=== PATIENT | male | born 1995 | race Caucasian/White ===

== ENCOUNTER 2018-11-10 07:51 | Day surgery (SDC) | payer OTHER ==
[~2018-11-10] VITALS: Ht 180.3 cm; Wt 102.0 kg
[~2018-11-10 07:51] MED LIST: AMPICILLIN SOD/SULBACTAM SOD 3 GM in D5W MINI-BAG PLUS 100 ML IV ONE; LR 1,000 ML IV ONE; dexameTHASONE 4 MG/ML 1ML VIAL (J1100) IV ONE
[2018-11-10] MEDS ORDERED: LIDOCAINE 2% INJ 100 MG/5 ML SDV (FOR ANES.) As Ordered ONE (08:08)
[2018-11-10] MEDS ORDERED: PROPOFOL 200 MG/20 ML VIAL As Ordered ONE (08:08)
[2018-11-10] MEDS ORDERED: ROCURONIUM BROMIDE 50 MG/5 ML VIAL As Ordered ONE (08:08)
[2018-11-10] MEDS ORDERED: MIDAZOLAM INJ 2 MG/2 ML VIAL (J2250) As Ordered ONE (08:09)
[2018-11-10] MEDS ORDERED: fentaNYL 250 MCG/5 ML INJECTION (J3010) As Ordered ONE (08:09)
[2018-11-10] MEDS ORDERED: OXYMETAZOLINE NASAL SPRAY (AFRIN) As Ordered ONE (09:11)
[2018-11-10] MEDS ORDERED: LIDOCAINE 2% W/ EPINEPHRINE 1.7 ML DENTAL INJ As Ordered ONE (09:14)
[2018-11-10] MEDS ORDERED: ONDANSETRON 4MG/2ML VIAL (J2405) As Ordered ONE (10:02)
[2018-11-10] MEDS ORDERED: KETOROLAC 60 MG/2 ML VIAL (J1885) As Ordered ONE (10:02)
[2018-11-10] MEDS ORDERED: METOCLOPRAMIDE INJ 10MG/2ML VIAL (J2765) As Ordered ONE (10:02)
[2018-11-10] MEDS ORDERED: SUGAMMADEX SODIUM 500 MG/5 ML VIAL (BRIDION) As Ordered ONE (10:02)
[2018-11-10] MEDS ORDERED: CHLORHEXIDINE GLUCONATE 0.12 % 15ML UDC (PERIDEX ORAL RINSE) As Ordered ONE (10:05)
[2018-11-10] MEDS ORDERED: DESFLURANE 240 ML INHALANT As Ordered ONE (10:20)
[2018-11-10] MEDS ORDERED: fentaNYL 100 MCG/2 ML INJECTION (J3010) As Ordered ONE (10:23)
[2018-11-10] MEDS ORDERED: PROMETHAZINE INJ 25 MG/ML VIAL (J2550) IV PRN (11:15)
[2018-11-10] MEDS ORDERED: fentaNYL 100 MCG/2 ML INJECTION (J3010) IV PRN (11:15)
[2018-11-10] MEDS ORDERED: LR 1,000 ML IV SCH (11:15)
[2018-11-10] MEDS ORDERED: oxyCODONE 5MG TAB PO PRN (11:15)
[2018-11-10] MEDS ORDERED: METOCLOPRAMIDE INJ 10MG/2ML VIAL (J2765) IV PRN (11:15)
[2018-11-10 12:15] VITALS: BP 134/75
--- NOTE | 2018-11-11 17:58 | RO ---
DATE OF PROCEDURE: 11/10/2018 PREOPERATIVE DIAGNOSIS: 1. ADHD and severe dental anxiety. 2. Symptomatic and malposition wisdom teeth number 1, 16, 17 and 32. POSTOPERATIVE DIAGNOSIS: Status post the above procedure performed surgical extraction of teeth number 1, 16, 17 and 32 anesthesia use general endotracheal anesthesia via nasal ray. SPECIMEN: Teeth for gross only. INDICATIONS FOR SURGERY: Milan is a pleasant, [age]-year-old male who was referred my office for evaluation of extraction of 05/07/2016 and 32 and possibly 18. The patient does not want to have #18 removed and only wants to have his wisdom teeth removed. Physical examination was completed due to his difficult airway and severe dental anxiety. He is not a good candidate for office based anesthesia and therefore we opted to have the procedure done in an operating room setting under general anesthesia. A full history and physical was performed and is in the patient's chart and informed consent was explained to the patient and the mother and all the questions were addressed and was signed and in the patient's chart. DESCRIPTION OF PROCEDURE: The patient presented to preop holding area and any last minute questions were addressed. Paperwork was updated including the consent and history and physical. At that point that point Sun was taken back to the operating room and laid supine on the operating room table. Ulnar nerve protectors were placed. Noninvasive cardiac monitors were applied. At that point the patient underwent general anesthesia with intubation with a nasal ray which was secured to the patient's forehead. He was prepped and draped in usual sterile fashion. A time-out procedure was performed identify the patient, procedure and any other precautions. At this point. Preoperative antibiotics and steroid were administered in the IV and a moist throat pack was inserted in the patient's oropharynx followed by the administration of eight carpules of 2% lidocaine with 1:100,000 epinephrine as local infiltrations and blocks. Full-thickness flap sites number 17 and 32 with a distal hockey stick extension was released and reflected. Buccal bone was removed to expose the crowns of the teeth and a small amount of distal bone was also removed. At this point the teeth were sectioned buccolingually and removed in their entirety. Sockets were copiously irrigated and suctioned. The lingual cortices were intact. Inferior alveolar nerve was not noted and the flaps were then closed with 3-0 chromic sutures. At this point attention was then given teeth number 1 and 16 where a full-thickness flap was released extending into the adjacent teeth number 2 and 15. Small amount of buccal bone was removed to improve the elevator purchase. The teeth number 1 and 16 were then luxated out and delivered with ease. Sockets were copiously irrigated and suctioned. No sinus exposure noted and the flaps were closed with 3-0 chromic sutures. At this point, once the teeth were removed. The oral cavity was irrigated and suctioned. Throat pack was removed. The patient was then awakened from general anesthesia and taken back to the PACU. COMPLICATIONS: None to mention at time of surgery. ESTIMATED BLOOD LOSS: 20 mL. DRAINS: There were no drains placed.
== END 2018-11-10 13:00 | disposition home or self-care (01) ==
LOC: M SDC 07:51
PROVIDERS: ATTEND Dentist
DX: K01.1 Impacted teeth (principal); K02.9 Dental caries, unspecified; K58.8 Other irritable bowel syndrome; F90.9 Attention-deficit hyperactivity disorder, unspecified type; F31.9 Bipolar disorder, unspecified
CPT/HCPCS: 88300; D7230; D9223; J1100; J1885; J2250; J2405; J2765; J3010